=== PATIENT | male | born 1975 ===

== ENCOUNTER → 2018-09-10 | Emergency (ER) | payer OTHER ==
[~2018-09-10] VITALS: Ht 165.1 cm; Wt 81.6 kg
[~2018-09-10] MED LIST: COZAAR50 MG; DOLOGESIC CAPLE1 TAB PO; GILTUSS TR TAB1 EACH PO; KETO10TA2 PO; ORPH100T PO; TORADOL10 MG PO; TRAMADOL HCL-AP1 TAB PO
== END | disposition left against medical advice (07) ==
LOC: ER 05:11
DX: Z53.20 Procedure and treatment not carried out because of patient's decision for unspecified reasons (principal)

== ENCOUNTER 2018-12-20 07:01 | Emergency (ER) | payer OTHER ==
[~2018-12-20] VITALS: Ht 165.1 cm; Wt 79.4 kg
== END 2018-12-20 12:18 | disposition home or self-care (01) ==
LOC: ER 07:01
DX: S40.011A Contusion of right shoulder, initial encounter (principal); W18.39XA Other fall on same level, initial encounter; Y93.89 Activity, other specified; Y92.89 Other specified places as the place of occurrence of the external cause; Y99.8 Other external cause status

== ENCOUNTER → 2019-10-14 | Emergency (ER) | payer OTHER ==
[~2019-10-14] VITALS: Ht 162.6 cm; Wt 81.6 kg
== END | disposition home or self-care (01) ==
LOC: ER 21:08
DX: M51.26 Other intervertebral disc displacement, lumbar region (principal)

== ENCOUNTER → 2019-12-13 | Emergency (ER) | payer OTHER ==
[~2019-12-13] VITALS: Ht 165.1 cm; Wt 74.8 kg
== END | disposition left against medical advice (07) ==
LOC: ER 05:56
DX: M54.5 Low back pain (principal)

== ENCOUNTER 2019-12-14 15:51 | Emergency (ER) | payer OTHER ==
[~2019-12-14] VITALS: Ht 165.1 cm; Wt 74.8 kg
== END 2019-12-14 17:49 | disposition home or self-care (01) ==
LOC: ER 15:51
DX: R10.31 Right lower quadrant pain (principal)

== ENCOUNTER 2022-11-24 20:14 | Emergency (ER) | payer OTHER ==
[~2022-11-24] VITALS: Ht 287 cm; Wt 68.0 kg
== END 2022-11-24 23:14 | disposition home or self-care (01) ==
LOC: ER 20:14
DX: S52.132A Displaced fracture of neck of left radius, initial encounter for closed fracture (principal); S49.92XA Unspecified injury of left shoulder and upper arm, initial encounter; W05.1XXA Fall from non-moving nonmotorized scooter, initial encounter; Y93.89 Activity, other specified; Y92.89 Other specified places as the place of occurrence of the external cause; Y99.9 Unspecified external cause status; Z88.8 Allergy status to other drugs, medicaments and biological substances

== ENCOUNTER 2024-09-16 23:57 | Emergency (ER) | payer OTHER ==
[~2024-09-16] VITALS: Ht 165.1 cm; Wt 70.3 kg
[2024-09-17] MEDS ORDERED: TETANUS & DIPHTHERIA TOX,ADULT 0.5 ML VIAL IM STA (01:36)
[2024-09-17] MEDS ORDERED: CEPHALEXIN500 MG PO (03:16)
== END 2024-09-17 03:39 | disposition home or self-care (01) ==
LOC: ER 23:57
DX: S01.01XA Laceration without foreign body of scalp, initial encounter (principal); W05.2XXA Fall from non-moving motorized mobility scooter, initial encounter; Y93.89 Activity, other specified; Y92.89 Other specified places as the place of occurrence of the external cause; Y99.9 Unspecified external cause status; Z88.8 Allergy status to other drugs, medicaments and biological substances